=== PATIENT | female | born 1995 | race African-American/Black ===

== ENCOUNTER 2017-01-17 08:20 | Emergency (ER) | payer MEDICAID ==
[~2017-01-17] VITALS: Ht 157.5 cm; Wt 53.0 kg
[~2017-01-17 08:20] MED LIST: PREN1TAB49 PO
[2017-01-17] MEDS ORDERED: IPRATROPIUM BROMIDE (0.02%) 0.5MG/2.5ML NEB HHN STA (08:36)
[2017-01-17] MEDS ORDERED: PREDNISONE 20MG TABLET PO STA (08:36)
[2017-01-17] MEDS ORDERED: ALBUTEROL (0.083%) 2.5MG/3ML NEB HHN STA (08:36)
[2017-01-17 09:30] VITALS: BP 124/66
== END 2017-01-17 09:30 | disposition home or self-care (01) ==
LOC: ER 08:30
DX: J45.909 Unspecified asthma, uncomplicated (principal); Z88.0 Allergy status to penicillin
CPT/HCPCS: 71010; 94640; 99283; J7512; J7611